=== PATIENT | female | born 1965 | race Caucasian/White ===

== ENCOUNTER 2022-09-19 05:42 | Day surgery (SDC) | payer OTHER ==
[~2022-09-19] VITALS: Ht 162.6 cm; Wt 65.8 kg
[~2022-09-19 05:42] MED LIST: SYNTHROID100 MCG PO
== END 2022-09-19 11:25 | disposition home or self-care (01) ==
LOC: CIR.AMB 05:42
PROVIDERS: ATTEND Orthopaedic Surgery
DX: M75.121 Complete rotator cuff tear or rupture of right shoulder, not specified as traumatic (principal); M13.811 Other specified arthritis, right shoulder; M75.21 Bicipital tendinitis, right shoulder; Z88.0 Allergy status to penicillin; Z20.822 Contact with and (suspected) exposure to COVID-19

== ENCOUNTER 2023-08-27 14:25 | Emergency (ER) | payer OTHER ==
[~2023-08-27] VITALS: Ht 162.6 cm; Wt 65.8 kg
[2023-08-27] MEDS ORDERED: MECLIZINE HCL 12.5 MG TABLET PO STA (16:19)
[2023-08-27] MEDS ORDERED: DEXAMETHASONE SODIUM PHOSPHATE 4 MG/ML VIAL IM STA (16:19)
[2023-08-27] MEDS ORDERED: MECLIZINE HCL 12.5 MG TABLET PO ONE (16:24)
[2023-08-27] MEDS ORDERED: DEXAMETHASONE SODIUM PHOSPHATE 4 MG/ML VIAL ONE (16:24)
== END 2023-08-27 16:30 | disposition home or self-care (01) ==
LOC: ER 14:26
DX: R42 Dizziness and giddiness (principal); Z88.0 Allergy status to penicillin; E03.8 Other specified hypothyroidism

== ENCOUNTER 2024-03-22 14:48 | Emergency (ER) | payer OTHER ==
[~2024-03-22] VITALS: Ht 160 cm; Wt 59.0 kg
[2024-03-22] MEDS ORDERED: DIOVAN40 MG (15:36)
[2024-03-22] MEDS ORDERED: KETOROLAC TROMETHAMINE 60 MG VIAL IM ONE ×2 (16:30→16:38)
[2024-03-22] MEDS ORDERED: CIPROFLOXACIN IN 5 % DEXTROSE 200 MG/100 ML PIGGYBAG IV ONE (16:30)
[2024-03-22] MEDS ORDERED: TETANUS & DIPHTHERIA TOX,ADULT 0.5 ML VIAL IM ONE (16:30)
[2024-03-22] MEDS ORDERED: LIDOCAINE HCL 1% 10ML VIAL PERCUT ONE (16:30)
[2024-03-22] MEDS ORDERED: TETANUS DIPHTHERIA TOX. ADSOR 5 ML VIAL IM ONE (16:38)
[2024-03-22] MEDS ORDERED: LIDOCAINE HCL 1% 10ML VIAL ONE (16:38)
[2024-03-22] MEDS ORDERED: CIPROFLOXACIN HCL 500 MG TABLET PO ONE (16:45)
[2024-03-22] MEDS ORDERED: CIPRO500 MG PO (17:17)
[2024-03-22] MEDS ORDERED: PEPCID AC20 MG PO (17:17)
== END 2024-03-22 17:31 | disposition home or self-care (01) ==
LOC: ER 14:50
DX: S01.112A Laceration without foreign body of left eyelid and periocular area, initial encounter (principal); W18.39XA Other fall on same level, initial encounter; Y93.89 Activity, other specified; Y92.89 Other specified places as the place of occurrence of the external cause; Y99.9 Unspecified external cause status; I10 Essential (primary) hypertension; Z88.0 Allergy status to penicillin; Z85.42 Personal history of malignant neoplasm of other parts of uterus

== ENCOUNTER 2024-08-01 06:52 | Emergency (ER) | payer OTHER ==
[~2024-08-01] VITALS: Ht 162.6 cm; Wt 61.2 kg
[~2024-08-01 06:52] MED LIST changes: +CIPRO500 MG PO; +DIOVAN40 MG; +PEPCID AC20 MG PO
[2024-08-01] MEDS ORDERED: levoFLOXacin IN DEXTROSE 5 % 500MG/100ML PIGGYBAG IV ONE ×2 (08:45→08:50)
[2024-08-01] MEDS ORDERED: KETOROLAC TROMETHAMINE 60 MG VIAL IM ONE ×2 (10:26→10:30)
== END 2024-08-01 10:52 | disposition home or self-care (01) ==
LOC: ER 07:04
DX: L08.9 Local infection of the skin and subcutaneous tissue, unspecified (principal); D17.1 Benign lipomatous neoplasm of skin and subcutaneous tissue of trunk; I10 Essential (primary) hypertension; E03.9 Hypothyroidism, unspecified; Z88.0 Allergy status to penicillin

== ENCOUNTER 2024-08-23 11:05 | Outpatient (CLI) | payer OTHER | END 2024-08-23 11:19 | disposition home or self-care (01) | LOC: LAB 11:05 | PROVIDERS: ATTEND Specialist | DX: L02.91 Cutaneous abscess, unspecified (principal) ==